=== PATIENT | female | born 1995 | race Caucasian/White ===

== ENCOUNTER 2019-04-27 18:13 | Emergency (ER) | payer OTHER, SELFPAY ==
--- NOTE | ~2019-04-27 | CT_ITS ---
EXAMINATION: CT soft tissue neck w con DATE: 04/27/2019 20:58 INDICATION: Tooth abscess with neck tenderness and swelling in the submental region. TECHNIQUE: Computed tomography (CT) of the neck was performed with 75 mL Omnipaque-350 intravenous co ntrast. Automated exposure control and iterative reconstruction technique were employed. The dose-vivian gth product was 492.24 mGy-cm. COMPARISON: None FINDINGS: There is a deep dental Elva at the posterior most right mandibular molar. There is small amount of l ucency surrounding the roots which abuts and appears to thin the cortex along the lingual side of the mandible. There appears to be a subperiosteal abscess extending along the lingual margin of the tosah ibular ramus which measures approximately 2.3 cm anterior to posteriorly, 1.5 cm craniocaudal and up to 5 mm in thickness. There are a couple likely reactive mildly asymmetrically enlarged right submand ibular lymph nodes, the larger measuring approximately 9 mm short axis diameter. There is mild soft t issue swelling and subcutaneous stranding extending anteroinferiorly along the right mandible which c ould represent reactive edema or cellulitis. There are couple additional dental caries at the posteri or most molars at both the left and right maxilla. Maxillofacial bones are otherwise unremarkable. Orbits are normal. Mild mucosal thickening at the lef t maxillary sinus. Mastoid air cells and middle ear cavities are clear. Visualized portions of the br ain are normal. Bilateral parotid and submandibular glands are normal. Thyroid gland is normal. The d eep spaces of the neck are unremarkable. Cervical spine is normal aside from likely positional mild r eversal of the normal cervical lordosis. Visualized apices of the lungs are clear. Superior mediastin um is unremarkable. IMPRESSION: 1. Dental caries at the posterior-most right mandibular with periapical abscess which appears to comp romise the lingual sided cortex with overlying subperiosteal abscess. Reviewed, dictated and finalized at location A. DOOR MAN IMPRESSION: 1. Dental caries at the posterior-most right mandibular with periapical abscess which appears to compromise the lingual sided cortex with overlying subperiost eal abscess.
[2019-04-27 18:43] VITALS: BP 126/79; PULSE 89; RESP 18; TEMP 36.9; O2SAT 98
--- NOTE | 2019-04-27 19:45 | ED.DENTAL ---
HPI - Dental/Oral General Chief complaint: Dental/Oral Stated complaint: Tooth pain Source: patient Mode of arrival: ambulatory Limitations: no limitations History of Present Illness HPI Narrative: 23 y.o. female developed pain in her right ear 5 days ago. Yesterday she began having aching painful swelling below her jaw on the right side. It has worsened in intensity, made worse with attempting to fully open her mouth. Pain radiates up into the tongue; moving her tongue, swallowing, turning or flexing her neck all increase the pain. She's been taking ibuprofen alternated with acetaminophen. Pain presently is #6/10. There has been no fever or chills. She has no hx of dental abscesses. Location: Tooth # (32) Related Data Home Medications Medication Instructions Recorded Confirmed levothyroxine 112 mcg PO DAILY 04/27/19 04/27/19 Allergies Allergy/AdvReac Type Severity Reaction Status Date / Time No Known Allergies Allergy Verified 04/27/19 18:52 Review of Systems Constitutional: Constitutional: Reports no additional constitutional complaints ENT: Reports system reviewed and no additional complaints, except as documented, Denies dysphagia and Denies sore throat Respiratory: Respiratory: Denies cough and Denies dyspnea Gastrointestinal: Gastrointestinal: Denies diarrhea, Reports nausea and Denies vomiting PMF Past Medical History Medical History (Updated 04/28/19 @ 00:00 by Background Daemon) Graves disease History of thyroid irradiation Family History Family History (Updated 10/23/13 @ 07:13 by DOCTOR UNKNOWN) Mother Family history of seizure disorder Social History Social History (Updated 04/27/19 @ 19:53 by Roe Gamez MD) Smoking status: Current every day smoker Alcohol intake: current Exam Narrative: Exam Narrative: Sitting quietly on exam table, texting. Const: Orientation/consciousness: patient oriented x3 HENMT: Ears: external ears normal and TM's normal bilaterally Face and sinus: normal facial exam and no sinus tenderness Mouth: Yes lip normal and Yes moist mucous membranes Teeth and gingiva: abnormal tooth and associated gingiva (partially decayed tooth #32 (mandibular wisdom tooth), Pain with percussion) Throat: posterior oropharynx normal Neck: Other: Visibly swollen anterior neck, just to the right of the trachea,which extends causal from the mandible to the level of the cricoid membrane. Chest: Chest palpation & inspection: normal inspection of the chest Resp: Effort & Inspection: normal respiratory effort Cardio: Rhythm: regular rhythm Course Vital Signs Vital signs: Vital Signs Temperature 36.9 C 04/27/19 18:43 Pulse Rate 89 04/27/19 18:43 Respiratory Rate 18 04/27/19 18:43 Blood Pressure 126/79 04/27/19 18:43 Pulse Oximetry 98 04/27/19 18:43 Temperature 36.9 C 04/27/19 18:43 Pulse Rate 82 04/27/19 21:56 Respiratory Rate 18 04/27/19 18:43 Blood Pressure 123/80 04/27/19 21:56 Pulse Oximetry 98 04/27/19 18:43 MDM - Dental/Oral Differential Diagnosis Differential diagnosis: Likely dental caries and dental abscess Lab Data Attestation: I reviewed the patient's lab results. Result diagrams: 04/27/19 19:51 04/27/19 19:51 Labs: Lab Results 04/27/19 04/27/19 04/27/19 Range/Units 19:51 19:51 19:51 WBC 11.9 H (4.8-10.8) K/mm3 RBC 4.16 L (4.20-5.40) M/mm3 Hgb 12.1 (12.0-15.0) g/dL Hct 35.9 (35.0-49.0) % MCV 86.3 (78.0-102.0) fL MCH 29.1 (27.0-31.0) pg MCHC 33.7 (32.0-36.0) g/dL RDW 13.2 (11.6-14.4) % Plt Count 322 (150-420) K/mm3 MPV 9.8 (9.2-11.8) fl Immature Gran % (Auto) 0.4 H (0.0-0.0) % Neut % (Auto) 70.3 H (50.0-70.0) % Lymph % (Auto) 20.0 (18.0-42.0) % Davison % (Auto) 7.9 (2.0-11.0) % Eos % (Auto) 1.1 (1.0-6.0) % Baso % (Auto) 0.3 (0.0-1.0) % Lymph # (Auto) 2.39 (1.10-4.50) K/mm3
[2019-04-27] MEDS: MORPHINE SULFATE 2 MG/ML INJ IV PUSH (19:46)
[2019-04-27] MEDS: SODIUM CHLORIDE 0.9% IV 1,000 ML 999 ML IV CONT (19:46)
[2019-04-27 19:55] LABS: Basophils Absolute Auto 0.04 K/mm3 (0.00-0.10); Basophils Percent Auto 0.3 % (0.0-1.0); Eosinophils Absolute Auto 0.13 K/mm3 (0.02-0.50); Eosinophils Percent Auto 1.1 % (1.0-6.0); Hematocrit 35.9 % (35.0-49.0); Hemoglobin 12.1 g/dL (12.0-15.0); Immature Granulocyte Absolute 0.05 K/mm3 (0.00-0.00); Immature Granulocyte Percent A 0.4 % (0.0-0.0); Lymphocytes Absolute Auto 2.39 K/mm3 (1.10-4.50); Mean Corpuscular HGB Conc 33.7 g/dL (32.0-36.0); Mean Corpuscular Hemoglobin 29.1 pg (27.0-31.0); Mean Corpuscular Volume 86.3 fL (78.0-102.0); Mean Platelet Volume 9.8 fl (9.2-11.8); Monocytes Absolute Auto 0.94 K/mm3 (0.10-0.90); Monocytes Percent Auto 7.9 % (2.0-11.0); Neutrophils Absolute Auto 8.4 K/mm3 (1.7-7.2); Neutrophils Percent Auto 70.3 % (50.0-70.0); Platelet Count Result 322 K/mm3 (150-420); Red Blood Count 4.16 M/mm3 (4.20-5.40); Red Cell Distribution Width 13.2 % (11.6-14.4); White Blood Count 11.9 K/mm3 (4.8-10.8)
[2019-04-27 20:28] LABS: Anion Gap 14.5 mmol/L (7-16); Blood Urea Nitrogen 10 mg/dL (7-18); Calcium 8.5 mg/dL (8.5-10.1); Carbon Dioxide 25 mmol/L (21-32); Chloride 105 mmol/L (98-108); Estimated CRCL calculation 100 ml/min; Estimated Glomerular Filt Rate > 60; Glucose 85 mg/dL (70-99); Osmolality Calculated 290 mOsm/kg (285-295); Potassium 3.5 mmol/L (3.5-5.1); Sodium 141 mmol/L (136-145)
[2019-04-27 20:29] LABS: Beta HCG Quantitative < 1.00 mIU/mL (0-6)
[2019-04-27] MEDS: CLINDAMYCIN HCL 150 MG CAP 300 MG PO (21:25)
[2019-04-27 21:56] VITALS: BP 123/80; PULSE 82
== END 2019-04-27 21:57 | disposition home or self-care (01) ==
PROVIDERS: Emergency Provider Family Medicine; PCP Internal Medicine
DX: K04.7 Periapical abscess without sinus (principal)
CPT/HCPCS: 36415; 70491; 80048; 84702; 85025; 96361; 96374; 99283; 99284; A9270; J2270; J7030; Q9965

== ENCOUNTER 2021-09-05 13:38 | Outpatient (CLI) | payer OTHER, SELFPAY ==
[2021-09-05 14:35] LABS: Influenza A QL RT-PCR Negative (Negative); Influenza B QL RT-PCR Negative (Negative); SARS-CoV-2 RNA PCR Positive (Negative)
== END 2021-09-05 13:39 | disposition home or self-care (01) ==
LOC: CHSLAB 13:44
PROVIDERS: PCP Internal Medicine; Visit Provider Nurse Practitioner Family
DX: U07.1 COVID-19 (principal); R50.9 Fever, unspecified; K08.89 Other specified disorders of teeth and supporting structures
CPT/HCPCS: 87081; 87502; 87880; C9803; U0003; U0005

== ENCOUNTER 2021-09-30 19:15 | Emergency (ER) | payer OTHER, SELFPAY ==
--- NOTE | ~2021-09-30 | XR_ITS ---
EXAMINATION: XR chest 2V DATE: 09/30/2021 20:50 INDICATION: 3 days of cough TECHNIQUE: PA and lateral views of the chest were obtained. COMPARISON: Chest radiograph dated 11/11/11 FINDINGS: Couple unchanged calcite nodules in the left lung consistent with old granulomatous disease. Lungs re main otherwise clear with no new airspace opacities, pulmonary edema, pleural effusion or pneumothora x.. The cardiomediastinal silhouette is normal. Visualized bones and soft tissues are unremarkable. IMPRESSION: 1. No acute cardiopulmonary disease. Reviewed, dictated and finalized at location A.
[2021-09-30 19:43] VITALS: BP 124/87; PULSE 83; RESP 22; TEMP 36.7; O2SAT 98
--- NOTE | 2021-09-30 20:12 | ED.GENADULT ---
HPI - General Adult General Chief complaint: Shortness of Breath/Dyspnea Stated complaint: Labored breathing History of Present Illness HPI narrative: the patient is a 26-year-old woman with history of Graves disease status post radiation therapy, and a distant history of childhood asthma. She did contract COVID 19 for the 1st time on 09/05/2021. She is not vaccinated against COVID. She did recover from her COVID bout several weeks ago. She had been doing reasonably well until 2 days ago when she started having wheezing, and nonproductive dry cough, and increasing dyspnea. She does have chest pain and back pain from the cough along with nasal congestion but no rhinorrhea or sore throat. No fevers or chills or diaphoresis. No abdominal pain or nausea vomiting or urinary symptoms. She is on OCP and does not believe she could be . Related Data Home Medications Medication Instructions Recorded Confirmed levothyroxine 112 mcg capsule 112 mcg PO DAILY 04/27/19 09/30/21 Allergies Allergy/AdvReac Type Severity Reaction Status Date / Time No Known Allergies Allergy Verified 09/30/21 19:42 Review of Systems Review of Systems: All systems reviewed & are unremarkable except as noted in HPI and below Constitutional: Constitutional: Reports no additional constitutional complaints, Denies anorexia, Denies body ache(s), Denies chills, Denies excessive sweating, Denies fatigue, Denies fever(s), Denies frequent falls, Denies headache(s), Denies malaise and Denies poor appetite Eyes: Eyes: Reports no additional eye complaints, Denies blurry vision, Denies change in vision, Denies irritation, Denies itchy eyes and Denies photophobia ENT: Reports system reviewed and no additional complaints, except as documented, Reports Normal hearing present, Denies change in voice, Denies dysphagia, Denies vertigo, Denies dizziness, Denies ear discharge, Denies headache(s), Denies hearing loss, Denies hoarseness, Reports nasal congestion, Denies neck pain, Reports sinus pressure, Denies sore throat and Denies throat swelling Cardiovascular: Cardiovascular: Reports no additional cardiovascular complaints, Denies chest pain, Denies syncope, Denies rapid heart rate, Denies irregular heart rhythm, Denies leg edema, Denies dyspnea and Denies slow heart rate Respiratory: Respiratory: Reports no additional respiratory complaints, Reports chest congestion, Reports cough, Reports dyspnea, Denies stridor and Reports wheezing Gastrointestinal: Gastrointestinal: Reports no additional gastrointestinal complaints, Denies abdominal pain, Denies melena, Denies hematochezia, Denies dysphagia, Denies diarrhea, Denies nausea and Denies vomiting Genitourinary: Genitourinary: Denies hematuria, Denies urinary frequency, Denies dysuria, Denies flank pain and Denies urinary urgency Musculoskeletal: Musculoskeletal: Reports no additional musculoskeletal complaints, Denies abnormal gait, Denies back pain, Denies myalgias, Denies arthralgias, Denies joint swelling, Denies limited range of motion, Denies muscle cramps, Denies muscle weakness, Denies neck pain and Denies numbness Integumentary/Breasts: Skin/Breast: Reports system reviewed and no additional complaints, except as docu, Denies breast pain, Denies change in pigmentation, Denies pruritus, Denies erythema and Denies wounds Neurologic: Reports system reviewed and no additional complaints, except as documented, Reports Normal hearing present, Denies Abnormal speech present, Denies abnormal gait, Denies confusion, Denies vertigo, Denies dizziness, Denies syncope, Denies frequent falls, Denies headache(s), Denies focal weakness, Denies numbness and Denies paresthesias Psychiatric: Psychiatric: Reports no additional psychiatric complaints and Denies confusion Endocrine: Endocrine: Reports no additional endocrine complaints, Denies cold intolerance, Denies excessive sweating, Denies fatigue and Denies heat intolerance Hematol
[2021-09-30 20:58] LABS: Basophils Absolute Auto 0.07 K/mm3 (0.00-0.10); Basophils Percent Auto 0.4 % (0.0-1.0); Eosinophils Absolute Auto 0.24 K/mm3 (0.02-0.50); Eosinophils Percent Auto 1.5 % (1.0-6.0); Hemoglobin 12.8 g/dL (12.0-15.0); Immature Granulocyte Absolute 0.07 K/mm3 (0.00-0.00); Immature Granulocyte Percent A 0.4 % (0.0-0.0); Lymphocytes Absolute Auto 2.99 K/mm3 (1.10-4.50); Lymphocytes Percent Auto 18.3 % (18.0-42.0); Mean Corpuscular HGB Conc 32.8 g/dL (32.0-36.0); Mean Corpuscular Hemoglobin 28.6 pg (27.0-31.0); Mean Corpuscular Volume 87.1 fL (78.0-102.0); Mean Platelet Volume 10.3 fl (9.2-11.8); Monocytes Absolute Auto 0.79 K/mm3 (0.10-0.90); Monocytes Percent Auto 4.8 % (2.0-11.0); Neutrophils Absolute Auto 12.2 K/mm3 (1.7-7.2); Neutrophils Percent Auto 74.6 % (50.0-70.0); Platelet Count Result 354 K/mm3 (150-420); Red Blood Count 4.48 M/mm3 (4.20-5.40); Red Cell Distribution Width 13.6 % (11.6-14.4); White Blood Count 16.3 K/mm3 (4.8-10.8)
[2021-09-30] MEDS: methylPREDNISolone SOD SUCC 125 MG VIAL IV PUSH (20:59)
[2021-09-30] MEDS: ACETAMINOPHEN 500 MG TABLET 1000 MG PO (20:59)
[2021-09-30] MEDS: MAGNESIUM SULF 2 GM/WATER 50ML 2 GM/50 ML BAG IVPB (20:59)
[2021-09-30] MEDS: IBUPROFEN 400 MG TABLET 800 MG PO (20:59)
[2021-09-30 21:06] VITALS: PULSE 85; RESP 19; O2SAT 98
[2021-09-30 21:09] VITALS: O2SAT 96
[2021-09-30] MEDS: IPRATROPIUM 0.5 MG/ALBUTEROL SULFATE 2.5 MG AMPUL.NEB 3 ML INHALATION (21:09)
[2021-09-30 21:10] VITALS: PULSE 84; RESP 19; O2SAT 98
[2021-09-30 21:10] LABS: SARS-CoV-2 RNA PCR Negative (Negative)
[2021-09-30 21:15] VITALS: PULSE 91; O2SAT 95
[2021-09-30 21:15] LABS: SPREG INTERNAL CONTROL Positive; Serum Qual hCG Negative
[2021-09-30 21:19] LABS: Alanine Aminotransferase 12 U/L (14-59); Albumin Level 3.3 g/dL (3.4-5.0); Alkaline Phosphatase 103 U/L (46-116); Anion Gap 11 mmol/L (8-16); Aspartate Amino Transferase 10 U/L (15-37); Bilirubin,Total 0.1 mg/dL (0.00-1.00); Blood Urea Nitrogen 8 mg/dL (7-18); CRP 4.9 mg/dL (0.0-0.9); Calcium 8.9 mg/dL (8.5-10.1); Carbon Dioxide 24 mmol/L (21-32); Chloride 103 mmol/L (98-108); Estimated Glomerular Filt Rate > 60; Glucose 109 mg/dL (70-99); Osmolality Calculated 285 mOsm/kg (285-295); Potassium 3.4 mmol/L (3.5-5.1); Sodium 138 mmol/L (136-145); Total Protein 7.3 g/dL (6.4-8.2)
[2021-09-30] MEDS: AZITHROMYCIN 250 MG TABLET 500 MG PO (21:46)
[2021-09-30 22:03] LABS: Erythrocyte Sedimentation Rate 33 mm/hr (0-15)
[2021-09-30 22:07] VITALS: BP 120/72; PULSE 90; RESP 16; O2SAT 97
== END 2021-09-30 22:08 | disposition home or self-care (01) ==
PROVIDERS: Emergency Provider Emergency Medicine; PCP Internal Medicine
DX: J45.901 Unspecified asthma with (acute) exacerbation (principal); Z20.822 Contact with and (suspected) exposure to COVID-19; Z28.310 Unvaccinated for COVID-19
CPT/HCPCS: 36415; 71046; 80053; 84703; 85025; 85652; 86140; 94640; 96365; 96375; 99284; A9270; C9803; J2930; J3475; U0003; U0005

== ENCOUNTER 2023-05-23 13:32 | Outpatient (CLI) | payer OTHER, SELFPAY ==
[2023-05-23 13:46] LABS: Basophils Absolute Auto 0.08 K/mm3 (0.00-0.10); Basophils Percent Auto 0.7 % (0.0-1.0); Eosinophils Absolute Auto 0.32 K/mm3 (0.02-0.50); Eosinophils Percent Auto 2.7 % (1.0-6.0); Hematocrit 42.1 % (35.0-49.0); Hemoglobin 13.9 g/dL (12.0-15.0); Immature Granulocyte Absolute 0.04 K/mm3 (0.00-0.00); Immature Granulocyte Percent A 0.3 % (0.0-0.0); Lymphocytes Absolute Auto 2.82 K/mm3 (1.10-4.50); Lymphocytes Percent Auto 23.6 % (18.0-42.0); Mean Corpuscular Volume 87.7 fL (78.0-102.0); Monocytes Absolute Auto 0.84 K/mm3 (0.10-0.90); Neutrophils Absolute Auto 7.84 K/mm3 (1.70-7.20); Neutrophils Percent Auto 65.7 % (50.0-70.0); Platelet Count Result 380 K/mm3 (150-420); Red Cell Distribution Width 13.1 % (11.6-14.4); White Blood Count 11.9 K/mm3 (4.8-10.8)
[2023-05-23 14:17] LABS: Strep Group A RT-PCR NOT DETECTED (Negative)
[2023-05-23 14:20] LABS: SARS-CoV-2 RNA PCR Negative (Negative)
[2023-05-23 14:27] LABS: Influenza A QL RT-PCR Negative (Negative); Influenza B QL RT-PCR Negative (Negative); RSV RNA, RT-PCR Negative (Negative)
== END 2023-05-23 13:33 | disposition home or self-care (01) ==
LOC: CHSLAB 13:34
PROVIDERS: PCP Internal Medicine; Visit Provider Internal Medicine
DX: R05.9 Cough, unspecified (principal); J06.9 Acute upper respiratory infection, unspecified
CPT/HCPCS: 36415; 85025; 87637; 87651

== ENCOUNTER 2023-09-04 08:45 | Outpatient (CLI) | payer OTHER, SELFPAY ==
--- NOTE | ~2023-09-04 | MMUS_ITS ---
EXAMINATION: MM diagnostic fish BI w jean, US breast BI complete HISTORY: Palpable left breast abnormality. TECHNIQUE: Additional 3-D tomosynthesis images of the breasts were performed and synthetic 2-D images were generated. CAD analysis was submitted and interpreted. High resolution bilateral complete breas t ultrasound was performed. COMPARISON: Breast ultrasound dated 07/22/2014 BREAST PARENCHYMAL COMPOSITION: Dense: The breasts are heterogeneously dense, which may obscure small masses FINDINGS: MAMMOGRAPHIC FINDINGS: The breasts are symmetric. There are no suspicious masses, calcifications or architectural distortion in either breast to suggest malignancy. ULTRASOUND: Complete bilateral US of all 4 quadrants of the breasts and retroareolar region was reviewed. Normal heterogeneous echotexture without focal solid or cystic mass. IMPRESSION: 1. No evidence for malignancy in either breast. 2. Routine yearly screening mammogram and regular clinical breast examination are recommended. BI-RADS Category 1: Negative Reviewed, dictated and finalized at location B. IMPRESSION: 1. No evidence for malignancy in either breast. 2. Routine yearly screening mammogram and regular clinical breast examination a re recommended. BI-RADS Category 1: Negative
== END 2023-09-04 08:46 | disposition home or self-care (01) ==
PROVIDERS: PCP Internal Medicine; Visit Provider Nurse Practitioner Family
DX: N63.21 Unspecified lump in the left breast, upper outer quadrant (principal)
CPT/HCPCS: 76641; 77062; 77066; G0279

== ENCOUNTER 2023-11-27 10:37 | Outpatient (CLI) | payer OTHER, SELFPAY ==
--- NOTE | ~2023-11-27 | XR_ITS ---
XR chest 2V Ordering provider: Anjali Kinsey MD History: 28 years Female with . COUGH, CONGESTION . Comparison: September 30, 2021 FINDINGS: MEDIASTINUM: The cardiac silhouette is not enlarged. LUNGS: No infiltrates, effusions or pneumothorax. Nodule in the left upper lobe unchanged. OTHER: No free air under the diaphragm. IMPRESSION: Nodule in the left upper lobe measuring 6 mm unchanged from previous examination. No acute cardiopulmonary pathology. Reviewed, dictated and finalized at location A. IMPRESSION: Nodule in the left upper lobe measuring 6 mm unchanged from previous examinatio n. No acute cardiopulmonary pathology.
[2023-11-27 11:00] LABS: Hematocrit 41.8 % (35.0-49.0); Hemoglobin 14.1 g/dL (12.0-15.0); Mean Corpuscular HGB Conc 33.7 g/dL (32-36); Mean Corpuscular Hemoglobin 29.1 pg (27.0-31.0); Mean Corpuscular Volume 86.2 fL (78.0-102.0); Mean Platelet Volume 9.7 fl (9.2-11.8); Platelet Count Result 359 K/mm3 (150-420); Red Blood Count 4.85 M/mm3 (4.20-5.40); Red Cell Distribution Width 12.9 % (11.6-14.4); White Blood Count 15.7 K/mm3 (4.8-10.8)
[2023-11-27 11:26] LABS: Strep Group A RT-PCR NOT DETECTED (Negative)
[2023-11-27 11:35] LABS: SARS-CoV-2 RNA PCR Negative (Negative)
[2023-11-27 11:36] LABS: Influenza A QL RT-PCR Negative (Negative); Influenza B QL RT-PCR Negative (Negative); RSV RNA, RT-PCR Negative (Negative)
[2023-11-27 11:40] LABS: Alanine Aminotransferase 11 U/L (14-59); Albumin Level 3.4 g/dL (3.4-5.0); Alkaline Phosphatase 111 U/L (46-116); Anion Gap 11 mmol/L (4-12); Aspartate Amino Transferase 10 U/L (15-37); Bilirubin,Total 0.4 mg/dL (0.00-1.00); Blood Urea Nitrogen 3 mg/dL (7-18); Carbon Dioxide 23 mmol/L (21-32); Chloride 103 mmol/L (98-108); Estimated Glomerular Filt Rate > 60; Glucose 93 mg/dL (70-99); Osmolality Calculated 280 mOsm/kg (285-295); Potassium 4.1 mmol/L (3.5-5.1); Sodium 137 mmol/L (136-145); Total Protein 7.1 g/dL (6.4-8.2)
== END 2023-11-27 10:38 | disposition home or self-care (01) ==
LOC: CHSLAB 10:39
PROVIDERS: PCP Internal Medicine; Visit Provider Internal Medicine
DX: R05.9 Cough, unspecified (principal); R09.81 Nasal congestion; R91.1 Solitary pulmonary nodule
CPT/HCPCS: 36415; 71046; 80053; 85027; 87637; 87651